=== PATIENT | male | born 1940 | race Two or more races ===

== ENCOUNTER 2018-03-25 12:10 | Emergency (ER) | payer MEDICARE, OTHER ==
[~2018-03-25] VITALS: Ht 177.8 cm; Wt 79.4 kg
[2018-03-25 12:15] VITALS: BP 126/68
[2018-03-25] MEDS ORDERED: HYDROcodone-ACET 5/325MG TAB PO ONE (13:45)
== END 2018-03-25 14:07 | disposition home or self-care (01) ==
LOC: EDBD 12:10 → ER 12:15
DX: S42.211A Unspecified displaced fracture of surgical neck of right humerus, initial encounter for closed fracture (principal); S01.131A Puncture wound without foreign body of right eyelid and periocular area, initial encounter; I10 Essential (primary) hypertension; Z86.73 Personal history of transient ischemic attack (TIA), and cerebral infarction without residual deficits; W01.0XXA Fall on same level from slipping, tripping and stumbling without subsequent striking against object, initial encounter; Y93.89 Activity, other specified; Y99.8 Other external cause status; Y92.89 Other specified places as the place of occurrence of the external cause
CPT/HCPCS: 70450; 73030